=== PATIENT | male | born 1960 ===

== ENCOUNTER 2020-06-05 20:43 | Observation (INO) | payer BC ==
[2020-06-05] MEDS ORDERED: Boostrix 0.5 ML (Tdap) VIAL ONE (21:30)
[2020-06-05 21:43] LABS: #Basophils 0.1 thou/uL (0.0-0.2); #Eosinphils 0.3 thou/uL (0.0-0.7); #Lymphocytes 3.8 thou/uL (1.20-3.40); #Neutrophils 7.2 thou/uL (1.40-6.50); %Basophils 0.6 % (0.0-1.0); %Eosinophils 2.1 % (0.0-10.0); %Lymphocytes 30.8 % (21.0-51.0); %Monocytes 8.3 % (0.0-10.0); %Neutrophils 58.2 % (42.0-75.0); Hemoglobin 16.1 g/dL (14.0-18.0); Mean Corpuscular HGB CONC 33.7 g/dL (32.0-36.0); Mean Corpuscular Hemoglobin 31.6 pg (27.0-31.0); Mean Corpuscular Volume 93.7 fL (78.0-98.0); Mean Platelet Volume 7.5 fL (7.4-10.4); Platelet Count 332 thou/uL (130-400); Red Blood Cell (RBC) Count 5.09 mill/uL (4.70-6.10); White Blood Cell (WBC) Count 12.4 thou/uL (4.8-10.8)
[2020-06-05 22:03] LABS: ALT (SGPT) 22 U/L (8-55); AST (SGOT) 29 U/L (5-34); Albumin 4.2 g/dL (3.5-5.0); Alkaline Phosphatase 86 U/L (40-110); Anion Gap 14 mmol/L (10-20); BUN (Urea Nitrogen) 21 mg/dL (8.4-25.7); Bilirubin, Total 0.5 mg/dL (0.2-1.2); Calc. Creatinine Clearance 0 mL/min (70-130); Calcium 9.5 mg/dL (7.8-10.44); Carbon Dioxide 24 mmol/L (22-29); Chloride 107 mmol/L (98-107); Globulin 2.8 g/dL (2.4-3.5); Glucose 93 mg/dL (70-105); Potassium 4.1 mmol/L (3.5-5.1); Sodium 141 mmol/L (136-145)
--- NOTE | 2020-06-05 22:42 | RAD ---
XR Foot Rt 3 View STANDARD INDICATION: Foot pain COMPARISON: Foot radiograph dated June 05, 2020 at 6:51 PM FINDINGS: Bones: Comminuted fractures involving the distal phalanx and proximal phalanx of the right great toe are unchanged in position. Soft tissue swelling of the right great toe persists. No additional acute fracture is evident. 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 Smal l ossific density seen distal to the fibula which may reflect sequela of remote injury. Lisfranc alignment: Lisfranc alignment appears within normal limits. Soft tissues: There is soft tissue swelling the right great toe and forefoot IMPRESSION: Stable comminuted right great toe proximal phalangeal and distal phalangeal fractures. Ex tensive soft tissue swelling the right great toe and forefoot.
--- NOTE | 2020-06-06 00:50 | HP ---
REQUESTING PHYSICIAN: Dr. Oden. ATTENDING SURGEON: Dr. Olivia. CONSULTATIONS: Orthopedics, Dr. Campa. HISTORY OF PRESENT ILLNESS: The patient is a 59-year-old man, who was moving a trailer when he dropped in the hitch, landed on his right foot, specifically on his right great toe about 2 o'clock this afternoon. Pain became unbearable, so he came into the emergency department where he underwent evaluation and examination, and was noted to have open right great toe fracture, at which time we were asked to evaluate the patient for admission and obtain Orthopedic consultation. ALLERGIES: NONE. CURRENT MEDICATIONS: Cholesterol medicine. PAST MEDICAL HISTORY: Hypercholesterolemia. SURGICAL HISTORY: Open appendectomy. SOCIAL HISTORY: The patient works as a mechanical service representative. He denies drug use, drinks socially 1 to 2 times a month, and dips tobacco. He lives at home with family. REVIEW OF SYSTEMS: Ten-point review of systems is negative as otherwise stated. PHYSICAL EXAMINATION: VITAL SIGNS: Blood pressure 131/81, heart rate 64, respirations 18, oxygen saturation 98% on room air, and temperature is 98.3. GENERAL: The patient is resting comfortably in ER bed. He is awake, alert, and oriented. [place] Coma Scale is 15. HEENT: Head is normocephalic, atraumatic. Eyes; extraocular motion intact. PERRLA bilaterally. Ears are atraumatic without discharge. Nose is atraumatic without discharge. Oropharynx is clear. NECK: Nontender. Trachea is midline with no JVD. CHEST: Clear to auscultation with good inspiratory and expiratory effort. HEART: Regular rate and rhythm. ABDOMEN: Soft, flat, and nontender with active bowel sounds. EXTREMITIES: Neurovascularly intact x4. Right lower extremity has ecchymosis noted to the distal foot for second and third digits. Small laceration is noted at the base of the nail on his great toe. LABORATORY FINDINGS: WBC is 12.4, hemoglobin 16.1, hematocrit 47.7, platelets 332. Sodium 141, potassium 4.1, chloride 107, CO2 of 24, BUN 21, creatinine 1.40, glucose 93. RADIOGRAPHIC FINDINGS: Views of the right foot show a stable comminuted right great toe proximal phalangeal and distal phalangeal fractures with extensive soft tissue swelling of the right great toe and forefoot. ASSESSMENT AND PLAN: 1. Status post crush trauma to right great toe. 2. Grade 1 open fracture of right great toe. 3. Acute pain secondary to above. Plan will be to admit the patient to the surgical floor for observation. He will go to the operating room for closed reduction and pinning tomorrow. The patient was given Ancef and tetanus in the emergency department. We will do pain control, pulmonary toilet, gastritis and mechanical VTE prophylaxis. The patient will most likely go home postoperatively. The evaluation, examination, laboratory, and radiographic findings were discussed with Dr. Olivia after this dictation. Dr. Campa has been notified of this patient. Job ID: [id number]
[2020-06-06 01:25] LABS: SARS-CoV-2 NAA Rapid Test Not Detected (NotDetected)
[2020-06-06] MEDS ORDERED: Ondansetron ODT 4 MG TAB PO PRN (02:11)
[2020-06-06] MEDS ORDERED: traMADol HCl 50 MG TAB PO PRN ×2 (02:11)
[2020-06-06] MEDS ORDERED: Cyclobenzaprine 10 MG TAB PO PRN (02:11)
[2020-06-06] MEDS ORDERED: Dextrose 50% Abboject 50 ML SYRINGE SLOW IVP PRN (02:11)
[2020-06-06] MEDS ORDERED: hydrALAZINE 20 MG/ML VIAL SLOW IVP PRN (02:11)
[2020-06-06] MEDS ORDERED: Sodium Chloride 0.9% 1,000 ML IV SCH (02:11)
[2020-06-06] MEDS ORDERED: Ondansetron PF 4 MG/2 ML Vial IVP PRN (02:11)
[2020-06-06] MEDS ORDERED: Dextrose 5% in Water 1,000 ML IV PRN (02:11)
[2020-06-06] MEDS: Acetaminophen 500 MG TAB PO SCH ×2 (03:51→09:10)
[2020-06-06] MEDS: Ibuprofen 800 MG TAB PO SCH ×2 (03:51→13:31)
[2020-06-06 04:42] VITALS: BMI 31.6
[2020-06-06 11:03] VITALS: BP 133/76; TEMP 97.8
--- NOTE | 2020-06-06 17:01 | DIS ---
DATE OF ADMISSION: 06/05/2020 DATE OF DISCHARGE: 06/06/2020 ADMITTING DIAGNOSES: Comminuted right great toe proximal phalangeal and distal phalangeal fracture. HOSPITAL COURSE: A 59-year-old male, Yuniel Carnes, was admitted after dropping a trailer hitch on his right foot. The patient was found to have right great toe comminuted fracture. Orthopedics were consulted and recommended pain control, follow up in office in 1 week, and will start the patient on Augmentin q.12 b.i.d. for 7 days. While the patient was in the hospital, he tolerated regular diet, ambulating well without pain. The patient was discharged home with a surgical shoe on his right foot. The patient was instructed to limit his activity to prevent further injury to the right foot. The patient was scheduled appointment to follow up with Dr. Campa in 7 days. PHYSICAL EXAMINATION: VITAL SIGNS: Stable upon discharge. GENERAL: The patient is sitting upright in bed, comfortable, in no acute distress. CARDIAC: Normal sinus rhythm. LUNGS: Speaking full sentences. No accessory muscle use. EXTREMITIES: Right great toe in surgical shoe with dressing on. ASSESSMENT: Comminuted right great proximal toe phalangeal and distal phalangeal fracture. PLAN: 1. Follow up with Orthopedics in 7 days. 2. Take Tylenol and ibuprofen for pain control. 3. Remain off right foot for 7 days. No strenuous activity. Dictation time 10 minutes. Job ID: [id number] [id number]
[2020-06-06] MEDS ORDERED: Amoxicillin/Potassium Clav 875 MG TAB PO SCH (21:00)
[2020-06-07] MEDS ORDERED: Saccharomyces boulardii 250 MG CAP PO SCH (09:00)
== END 2020-06-06 13:22 | disposition home or self-care (01) ==
LOC: ERS 20:43 → ERHOLD 23:04 → SURG A 06-06 03:36
PROVIDERS: ADMIT Surgery; ATTEND Surgery
DX: S97.111A Crushing injury of right great toe, initial encounter (principal); S92.421B Displaced fracture of distal phalanx of right great toe, initial encounter for open fracture; S92.411B Displaced fracture of proximal phalanx of right great toe, initial encounter for open fracture; G89.11 Acute pain due to trauma; E78.00 Pure hypercholesterolemia, unspecified; F17.290 Nicotine dependence, other tobacco product, uncomplicated; Z79.899 Other long term (current) drug therapy; Z20.822 Contact with and (suspected) exposure to COVID-19; W20.8XXA Other cause of strike by thrown, projected or falling object, initial encounter
CPT/HCPCS: 36415; 80053; 85025; 90471; 90715; 96365; G0378; J0690; U0002